=== PATIENT | female | born 1995 | race Caucasian/White ===

== ENCOUNTER 2016-11-12 16:04 | Emergency (ER) | payer SELFPAY ==
[2016-11-12 16:22] VITALS: BP 110/72; PULSE 60; TEMP 98.7; BMI 29.2
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
== END 2016-11-12 19:12 | disposition home or self-care (01) ==
LOC: JERFT 16:04
DX: G44.311 Acute post-traumatic headache, intractable (principal); V86.59XA Driver of other special all-terrain or other off-road motor vehicle injured in nontraffic accident, initial encounter; Y92.488 Other paved roadways as the place of occurrence of the external cause; Y93.89 Activity, other specified; Y99.8 Other external cause status
CPT/HCPCS: 70450-TC; 72125-TC; 84703; 99281-25

== ENCOUNTER 2022-11-27 09:50 | Emergency (ER) | payer OTHER ==
[2022-11-27 10:01] VITALS: BMI 26.9
[2022-11-27] MEDS ORDERED: ONDANSETRON 4 MG/2 ML VIAL IVPUSH ONE (10:15)
[2022-11-27] MEDS ORDERED: LACTATED RINGERS SOLUTION 1000 ML INFUS.BAG IV ONE (10:15)
[2022-11-27] MEDS ORDERED: ACETAMINOPHEN 1000 MG/100 ML BAG IVPB ONE (10:15)
[2022-11-27] MEDS ORDERED: FAMOTIDINE 20 MG/50 ML IVPB 20 MG/50 ML MG IVPB ONE ×2 (10:15→10:57)
[2022-11-27] MEDS ORDERED: MAG HYDROX/AL HYDROX/SIMETH 30 ML UNIT-DOSE CUP PO ONE (10:17)
[2022-11-27] MEDS ORDERED: ACETAMINOPHEN INJECTION 100 ML IVPB ONE (10:30)
[2022-11-27] MEDS ORDERED: ONDANSETRON 4 MG/2 ML VIAL ONE (10:30)
[2022-11-27] MEDS ORDERED: MAG HYDROX/AL HYDROX/SIMETH 30 ML UNIT-DOSE CUP ONE (10:58)
[2022-11-27 11:20] LABS: BASO % 0.2 % (0-2.0); LYMPH % 10.7 % (8-40); MCH 28.7 pg (25.7-33.7); MCHC 33.4 g/dl (32.0-36.0); MEAN CELL VOLUME 85.7 fl (80-96); MEAN PLT VOLUME 9.3 fl (7.5-11.1); MONO % 1.8 % (3.8-10.2); NEUT % 87.3 % (42.8-82.8); PLATELET COUNT 222 10^3/uL (134-434); RBC 4.55 M/mm3 (3.60-5.2); RDW 13.8 % (11.6-15.6); WHITE BLOOD COUNT 9.5 K/mm3 (4.0-10.0)
[2022-11-27 11:22] LABS: PH,URINE 8.5 (5.0-8.0); URINE APPEARANCE CLEAR; URINE BILIRUBIN NEGATIVE (NEGATIVE); URINE COLOR YELLOW; URINE GLUCOSE (UA) NEGATIVE (NEGATIVE); URINE KETONE NEGATIVE (NEGATIVE); URINE LEUK ESTERASE NEGATIVE (NEGATIVE); URINE NITRITE NEGATIVE (NEGATIVE); URINE PROTEIN TRACE (NEGATIVE)
[2022-11-27 11:25] LABS: HCG,QUALITATIVE URINE Negative
[2022-11-27 11:48] LABS: CALCIUM 9.1 mg/dL (8.5-10.1)
[2022-11-27 11:49] LABS: ALBUMIN 4.2 g/dl (3.4-5.0); MAGNESIUM 2.1 mg/dL (1.8-2.4)
[2022-11-27 11:52] LABS: CREATININE 0.6 mg/dL (0.55-1.3)
[2022-11-27 11:53] LABS: BILIRUBIN,TOTAL 0.8 mg/dL (0.2-1); TOT PROT 7.9 g/dl (6.4-8.2)
[2022-11-27] MEDS ORDERED: METOCLOPRAMIDE HCL INJECTION 10 MG/2 ML VIAL IVPUSH ONE (12:15)
[2022-11-27] MEDS ORDERED: METOCLOPRAMIDE HCL INJECTION 10 MG/2 ML VIAL ONE (12:27)
[2022-11-27] MEDS ORDERED: KETOROLAC TROMETHAMINE 15 MG/ML VIAL IVPUSH ONE (12:38)
[2022-11-27] MEDS ORDERED: KETOROLAC TROMETHAMINE 15 MG/ML VIAL ONE (12:48)
[2022-11-27 14:31] VITALS: BP 114/70; PULSE 76; RESP 20; TEMP 99
== END 2022-11-27 14:31 | disposition home or self-care (01) ==
LOC: JER 09:50
PROC: 3E033GC Introduction of Other Therapeutic Substance into Peripheral Vein, Percutaneous Approach (ICD-10-PCS; principal; 2022-11-27)
PROC: 3E033NZ Introduction of Analgesics, Hypnotics, Sedatives into Peripheral Vein, Percutaneous Approach (ICD-10-PCS; 2022-11-27)
PROC: 3E0333Z Introduction of Anti-inflammatory into Peripheral Vein, Percutaneous Approach (ICD-10-PCS; 2022-11-27)
PROC: 3E033GC Introduction of Other Therapeutic Substance into Peripheral Vein, Percutaneous Approach (ICD-10-PCS; 2022-11-27)
PROC: 3E033GC Introduction of Other Therapeutic Substance into Peripheral Vein, Percutaneous Approach (ICD-10-PCS; 2022-11-27)
DX: R10.84 Generalized abdominal pain (principal); R11.2 Nausea with vomiting, unspecified; R68.83 Chills (without fever)
CPT/HCPCS: 36415; 80053; 81003; 83690; 83735; 84703; 85025; 87086; 99284-25

== ENCOUNTER 2024-06-27 10:20 | Inpatient (IN) | payer OTHER ==
[2024-06-27 10:43] VITALS: RESP 17
[2024-06-27 11:07] VITALS: TEMP 98.2
[2024-06-27] MEDS: ELECTROLYTE-148 SOLN 1,000 ML IV SCH (11:35)
[2024-06-27 12:35] LABS: BASO % 0.3 % (0-2.0); EOS % 2.3 % (0-4.5); HEMATOCRIT 32.4 % (32.4-45.2); HEMOGLOBIN 10.8 GM/dL (10.7-15.3); LYMPH % 17.5 % (8-40); MCH 29.3 pg (25.7-33.7); MCHC 33.4 g/dl (32.0-36.0); MEAN CELL VOLUME 87.6 fl (80-96); MEAN PLT VOLUME 9.3 fl (7.5-11.1); MONO % 5.8 % (3.8-10.2); NEUT % 74.1 % (42.8-82.8); PLATELET COUNT 214 10^3/uL (134-434); RBC 3.69 M/mm3 (3.60-5.2); WHITE BLOOD COUNT 10.9 K/mm3 (4.0-10.0)
[2024-06-27 12:41] LABS: INR 0.91 (0.83-1.09); PROTHROMBIN TIME (PATIENT) 10.5 SEC (9.7-13.0)
[2024-06-27 12:44] LABS: ACTIVATED PTT 26.8 SECONDS (25.2-36.5)
[2024-06-27 12:55] LABS: POTASSIUM 3.9 mmol/L (3.5-5.1)
[2024-06-27 12:56] LABS: CALCIUM 8.7 mg/dL (8.5-10.1)
[2024-06-27 12:57] LABS: BLOOD UREA NITROGEN 9.5 mg/dL (7-18)
[2024-06-27 13:00] LABS: CREATININE 0.5 mg/dL (0.55-1.3)
[2024-06-27 13:33] VITALS: BP 111/70; PULSE 63; BMI 29.0
[2024-06-27 13:52] LABS: HIV INTERPRETATION NEGATIVE (NEGATIVE)
== END 2024-06-27 11:38 | disposition short-term general hospital (02) | DRG 566 ==
LOC: JDEL 10:20 → JLDR 11:35
PROVIDERS: ADMIT Obstetrics & Gynecology; ATTEND Obstetrics & Gynecology
DX: O36.8320 Maternal care for abnormalities of the fetal heart rate or rhythm, second trimester, not applicable or unspecified (principal); Z3A.22 22 weeks gestation of pregnancy
CPT/HCPCS: 36415; 76801-TC; 80048; 85025; 85610; 85730; 86780; 86803; 86850; 86900; 86901; 87389